=== PATIENT | male | born 1960 | race African-American/Black ===

== ENCOUNTER 2016-04-06 16:57 | Emergency (ER) | payer OTHER ==
[~2016-04-06] VITALS: Ht 188 cm; Wt 110.0 kg
[~2016-04-06 16:57] MED LIST: AMLO10TA2 PO; CLON0.2T PO; GEMF600T PO; LISI40TA PO
[2016-04-06 17:25] VITALS: BP 110/60; PULSE 77; RESP 14; TEMP 98.9; O2SAT 98
[2016-04-06 17:52] LABS: AUTOMATED NEUTROPHIL # 2.5 TH/MM3 (1.8-7.7); BASOPHIL # 0.1 TH/MM3 (0-0.2); BASOPHIL % 1.2 % (0.0-2.0); EOSINOPHIL % 0.8 % (0.0-4.0); HEMATOCRIT 36.5 % (39.0-51.0); HEMO FLAGS DIFF FINAL; LYMPH % 41.6 % (9.0-44.0); LYMPHOCYTE # 2.2 TH/MM3 (1.0-4.8); MEAN CELL VOLUME 88.9 FL (80.0-100.0); MEAN CORPUSCULAR HEMOGLOBIN 30.2 PG (27.0-34.0); MONO % 9.9 % (0.0-8.0); NEUT % 46.5 % (16.0-70.0); PLATELET COUNT 239 TH/MM3 (150-450); RED CELL DISTRIBUTION WIDTH 13.8 % (11.6-17.2); WHITE BLOOD COUNT 5.4 TH/MM3 (4.0-11.0)
[2016-04-06 18:12] LABS: ANION GAP 9 MEQ/L (5-15); AST (GOT) 21 U/L (15-37); BICARBONATE 23.8 MEQ/L (21.0-32.0); BLOOD UREA NITROGEN 12 MG/DL (7-18); CHLORIDE 110 MEQ/L (98-107); GLOMERULAR FILTRATION RATE 67 ML/MIN (>89); POTASSIUM 3.4 MEQ/L (3.5-5.1); SODIUM (NA) 143 MEQ/L (136-145)
[2016-04-06 18:16] LABS: ALKALINE PHOSPHATASE 46 U/L (45-117); ALT (GPT) 21 U/L (12-78); TOTAL BILIRUBIN ADULT 0.4 MG/DL (0.2-1.0)
--- NOTE | 2016-04-06 18:22 | PD ---
HPI Chief Complaint: Syncope/Near-Syncope Time Seen by Provider: 18:07 Travel History International Travel<30 days: No Contact w/Intl Traveler<30days: No Traveled to known affect area: No History of Present Illness HPI 55-year-old Afro-[place]istani male coming in via ambulance status post syncopal episode. Patient states he's been out of his blood pressure medications for the past couple of days, and then get them refilled. He felt he needed to double up on them, prior to getting his haircut. Patient took 2 of his 0.2 mg clonidine and 2 of his 40 mg lisinopril and 2 of his 10 mg amlodipine at approximately noon today. He then went to get his haircut was sitting in a chair and had a syncopal episode. EMS was called as the patient had loss of bladder control. No seizure activity was noted. Patient's blood pressure at that time was 88 systolic over palp. Patient was given 800 mL of normal saline in the ambulance prior to arrival in the emergency department. Patient is currently getting a second liter of normal saline when I evaluated him. Patient is currently alert and oriented 3, and complaining of no pain. He is allergic to iodine and contrast media [facility] Past Medical History Depression: Yes Heart Rhythm Problems: No Cardiac Catheterization: No Cardiovascular Problems: Yes (HTN) High Cholesterol: Yes Congestive Heart Failure: No Diabetes: No Diminished Hearing: No Hepatitis: Yes (c) Hypertension: Yes Respiratory: Yes (BRONCHITIS) Immunizations Current: Yes Myocardial Infarction: No Past Surgical History Coronary Artery Bypass Graft: No Social History Alcohol Use: Yes (EVERY OTHER DAY) Tobacco Use: No Sub[facility]: [facility] Allergies-Medications (Allergen,Severity, Reaction): Coded Allergies: Iodinated Contrast Media (Verified Allergy, Severe, RASH, 02/03/16) Reported Meds & Prescriptions Reported Meds & Active Scripts Active Lisinopril 40 Mg Tab 40 Mg PO DAILY Amlodipine (Amlodipine Besylate) 10 Mg Tab 10 Mg PO DAILY Reported Gemfibrozil 600 Mg Tab 600 Mg PO BIDAC Take 30 minutes prior to breakfast and dinner. Clonidine (Clonidine HCl) 0.2 Mg Tab 0.2 Mg PO TID Review of Systems Except as stated in HPI: all other systems reviewed are Neg General / Constitutional: No: Fever Eyes: No: Visual changes HENT: No: Headaches Cardiovascular: No: Chest Pain or Discomfort Respiratory: No: Shortness of Breath Gastrointestinal: No: Abdominal Pain Genitourinary: No: Dysuria Musculoskeletal: No: Pain Skin: No Rash Neurologic: No: Weakness Psychiatric: No: Depression Endocrine: No: Polydipsia Hematologic/Lymphatic: No: Easy Bruising Physical Exam Narrative GENERAL: Patient appears in no acute distress. SKIN: Warm and dry. Normal color. Normal turgor. No diaphoresis. HEAD: Atraumatic. Normocephalic. EYES: Pupils equal and round. No scleral icterus. No injection or drainage. ENT: No nasal bleeding or discharge. Mucous membranes pink and moist. Pharynx is normal. Airway is patent. NECK: Trachea midline. No JVD. Neck is supple nontender. CARDIOVASCULAR: Regular rate and rhythm. No murmurs gallops or rubs appreciated. RESPIRATORY: No accessory muscle use. Clear to auscultation. Breath sounds equal bilaterally. GASTROINTESTINAL: Abdomen soft, non-tender, nondistended. Hepatic and splenic margins not palpable. MUSCULOSKELETAL: Extremities without clubbing, cyanosis, or edema. No obvious deformities. NEUROLOGICAL: Awake and alert. No obvious cranial nerve deficits. Motor grossly within normal limits. Five out of 5 muscle strength in the arms and legs. Normal speech. PSYCHIATRIC: Appropriate mood and affect; insight and judgment normal. Data Data Last Documented VS Vital Signs Date Time Temp Pulse Resp B/P Pulse Ox O2 Delivery O2 Flow Rate FiO2 04/06/16 20:28 79 18 111/77 82 20 115/82 82 125/77 04/06/16 17:25 98.9 98 Orders Electrocardiogram (04/06/16 17:23) Complete Blood Count With Diff (04/06/16 17:23) Comprehensive Metabolic Panel (04/06/16 17:23) Iv Access Insert/Monitor (04/06/16 17:23) Potassium Chloride (Kcl) (04/06/16 18:30) Sodium Chlor 0.9% 1000 Ml Inj (Ns 1000 M (04/06/16 18:30) Orthostatic Vital Signs (04/06/16 18:24) Labs Laboratory Tests Test 04/06/16 17:37 White Blood Count 5.4 TH/MM3 Red Blood Count 4.10 MIL/MM3 Hemoglobin 12.4 GM/DL Hematocrit 36.5 % Mean Corpuscular Volume 88.9 FL Mean Corpuscular Hemoglobin 30.2 PG Mean Corpuscular Hemoglobin 34.0 % Concent Red Cell Distribution Width 13.8 % Platelet Count 239 TH/MM3 Mean Platelet Volume 8.9 FL Neutrophils (%) (Auto) 46.5 % Lymphocytes (%) (Auto) 41.6 % Monocytes (%) (Auto) 9.9 % Eosinophils (%) (Auto) 0.8 % Basophils (%) (Auto) 1.2 % Neutrophils # (Auto) 2.5 TH/MM3 Lymphocytes # (Auto) 2.2 TH/MM3 Monocytes # (Auto) 0.5 TH/MM3 Eosinophils # (Auto) 0.0 TH/MM3 Basophils # (Auto) 0.1 TH/MM3 CBC Comment DIFF FINAL Differential Comment Sodium Level 143 MEQ/L Potassium Level 3.4 MEQ/L Chloride Level 110 MEQ/L Carbon Dioxide Level 23.8 MEQ/L Anion Gap 9 MEQ/L Blood Urea Nitrogen 12 MG/DL Creatinine 1.35 MG/DL Estimat Glomerular Filtration 67 ML/MIN Rate Random Glucose 110 MG/DL Calcium Level 8.3 MG/DL Total Bilirubin 0.4 MG/DL Aspartate Amino Transf 21 U/L (AST/SGOT) Alanine Aminotransferase 21 U/L (ALT/SGPT) Alkaline Phosphatase 46 U/L Total Protein 7.1 GM/DL Albumin 3.6 GM/DL [facility] Medical Decision Making Medical Screen Exam Complete: Yes Emergency Medical Condition: Yes Differential Diagnosis Syncopal episode. Hypotension. Medication-induced syncopal episode. Narrative Course Patient appears well and in no acute distress at time of exam. EKG is performed showing sinus rhythm with first degree A-V block. No acute changes are noted. This is reviewed with Dr. Guthrie. Patient so far has received 1800 mL of normal saline bolus. Labs are pending including CBC, and CMP. CBC is unremarkable. CMP shows potassium 3.4, chloride of 110, creatinine 1.35 , GFR 67. Random glucose is 110, calcium is 8.3. Patient is given 20 mEq potassium by mouth. Patient is given an additional 1 L normal saline bolus. Orthostatics are performed after this second liter of normal saline and 20 mEq potassium. After observation and 2 L of fluid. Orthostatics are improved. Patient is able to ambulate without difficulty. Patient is felt to be stable to be discharged home. Diagnosis Primary Impression: Syncope due to orthostatic hypotension Referrals: Primary Care Physician Patient Instructions: General Instructions Departure Forms: Work Release Enter return to work date: Apr 08, 2016 Additional Instructions: Cold all blood pressure medications until tomorrow morning. Always take medication as prescribed despite missing a couple of doses. Follow-up with her primary care physician as needed. Return to emergency Department with any worsening symptoms or concerning as needed. Med/Other Pt SpecificInfo: No Change to Meds Disposition: 01 DISCHARGE HOME Condition: Stable Lenny Vences Apr 06, 2016 18:22
[2016-04-06] MEDS ORDERED: POTASSIUM CHLORIDE 20 MEQ CONTROLLED RELEASE TAB PO ONE (18:30)
[2016-04-06] MEDS ORDERED: SODIUM CHLOR 0.9% 1000 ML INJ 1,000 ML IV ONE (18:30)
[2016-04-06 20:28] VITALS: BP_SYST 111; BP_SYST 115; BP_SYST 125; BP_DIAS 77; BP_DIAS 82; RESP 18; RESP 20
--- NOTE | 2016-04-06 21:46 | EKG ---
Date Performed: 04/06/2016 Time Performed: 17:32:35 PTAGE: 55 years EKG: Sinus rhythm WITH FIRST DEGREE AV BLOCK PATTERN CONSISTENT WITH PULMONARY DISEASE LEFT ANTERIOR FASCICULAR BLOCK NONSPECIFIC T-WAVE ABNORMALITY ABNORMAL ECG INTERPRETATION BASED ON A DEFAULT AGE OF 40 YEARS PREVIOUS TRACING : 08/30/2015 08.39 No significant change DOCTOR: Tenzin Lloyd Interpretating Date/Time 04/06/2016 21:44:44
[2016-04-09] MEDS ORDERED: CLON0.2T PO ×2 (14:06→14:07)
[2016-04-13] MEDS ORDERED: METH125I2 IM (14:30)
[2016-04-13] MEDS ORDERED: CLOT1CRE8 TOPICAL (14:31)
[2016-04-23] MEDS ORDERED: METH125I2 IM (10:46)
[2016-04-24] MEDS ORDERED: GEMF600T PO (13:08)
[2016-06-08] MEDS ORDERED: GEMF600T PO (16:08)
[2016-06-11] MEDS ORDERED: CLOT1CRE8 TOPICAL (14:35)
[2016-06-11] MEDS ORDERED: METH125I2 IM (14:48)
[2016-06-12] MEDS ORDERED: TAMS5CAP PO (10:36)
[2016-06-13] MEDS ORDERED: CLOT1CRE8 TOPICAL (16:20)
[2016-06-21] MEDS ORDERED: AMLO10TA2 PO (11:59)
[2016-06-28] MEDS ORDERED: HYDR50TA94 PO (15:46)
[2016-07-22] MEDS ORDERED: LISI40TA PO (06:22)
[2016-07-26] MEDS ORDERED: CLON0.2T PO (16:44)
[2016-07-30] MEDS ORDERED: CLON0.2T PO (10:50)
[2016-09-13] MEDS ORDERED: METH125I2 IM (14:52)
[2016-09-13] MEDS ORDERED: [UNRECOGNIZED DRUG - CODE] IM (14:57)
[2016-09-18] MEDS ORDERED: TAMS5CAP PO (13:11)
== END 2016-04-06 21:23 | disposition home or self-care (01) ==
LOC: NEPC 16:57
DX: I95.1 Orthostatic hypotension (principal)
CPT/HCPCS: 80053; 85025; 93005; 99285; J7030

== ENCOUNTER → 2016-04-23 | Outpatient (CLI) | payer OTHER ==
[~2016-04-23] MED LIST changes: +CLOT1CRE8 TOPICAL; +HYDR50TA94 PO; +METH125I2 IM; +TAMS5CAP PO; +[UNRECOGNIZED DRUG - CODE] IM
[2016-04-23 13:04] LABS: CHLAMYDIA PCR NOT DETECTED (NOT DETECT); NEISSERIA PCR NOT DETECTED (NOT DETECT)
== END ==
LOC: CLAB 08:42
PROVIDERS: ATTEND Physician Assistant Medical
DX: R21 Rash and other nonspecific skin eruption (principal)
CPT/HCPCS: 87491; 87591

== ENCOUNTER → 2016-06-08 | Outpatient (CLI) | payer OTHER ==
[2016-06-08 08:21] LABS: HDL CHOLESTEROL 87.3 MG/DL (40.0-60.0)
== END ==
LOC: CLAB 07:30
PROVIDERS: ATTEND Family Medicine
DX: R55 Syncope and collapse (principal); M25.572 Pain in left ankle and joints of left foot; E78.5 Hyperlipidemia, unspecified
CPT/HCPCS: 36415; 80061

== ENCOUNTER → 2016-06-11 | Outpatient (CLI) | payer OTHER | LOC: CLAB 14:53 | PROVIDERS: ATTEND Family Medicine | DX: R39.11 Hesitancy of micturition (principal) | CPT/HCPCS: 36415; 84153 ==

== ENCOUNTER → 2016-07-16 | Outpatient (CLI) | payer OTHER ==
--- NOTE | 2016-07-16 14:37 | EKG ---
Date Performed: 07/16/2016 Time Performed: 12:43:39 PTAGE: 55 years EKG: SINUS TACHYCARDIA WITH FIRST DEGREE AV BLOCK PATTERN CONSISTENT WITH PULMONARY DISEASE LEFT ANTERIOR FASCICULAR BLOCK ABNORMAL ECG COMPARED TO PRIOR ELECTROCARDIOGRAM, Rate has increased. PREVIOUS TRACING : 04/06/2016 17.32 DOCTOR: Hay Bui Interpretating Date/Time 07/16/2016 14:35:40
--- NOTE | 2016-07-17 17:35 | TR ---
Date Performed: 07/16/2016 Time Performed: 12:21:35 DOCTOR: Ariadna Guo DRUG LIST: CLINICAL HISTORY: REASON FOR TEST: REASON FOR ENDING: OBSERVATION: CONCLUSION: SHAYLA PROTOCOL. NO CP OR SOB. TEST STOPPED AFTER EXCEEDING GOAL HR SECONDARY TO LEG FATIGUE.Maximum LY=733 Max HR Achieved=95.0% Maximum PB=080/90 Total Exercise Time=4:25 COMMENTS:
== END ==
LOC: HCAV 12:07
PROVIDERS: ATTEND Family Medicine
DX: I10 Essential (primary) hypertension (principal); F41.9 Anxiety disorder, unspecified; R07.9 Chest pain, unspecified
CPT/HCPCS: 93005; 93017

== ENCOUNTER 2017-03-06 07:58 | Emergency (ER) | payer OTHER ==
[~2017-03-06] VITALS: Ht 188 cm; Wt 115.0 kg
[~2017-03-06 07:58] MED LIST changes: -METH125I2 IM; -[UNRECOGNIZED DRUG - CODE] IM
[2017-03-06 08:00] VITALS: BP 175/107; PULSE 83; RESP 16; TEMP 98.7; O2SAT 97
[2017-03-06 08:24] VITALS: O2SAT 99
[2017-03-06 08:25] VITALS: BP_SYST 155; BP_SYST 162; BP_DIAS 100; BP_DIAS 105; PULSE 73
--- NOTE | 2017-03-06 08:25 | PD ---
HPI Chief Complaint: Cardiac Complaint Time Seen by Provider: 08:17 Travel History International Travel<30 days: No Contact w/Intl Traveler<30days: No Traveled to known affect area: No History of Present Illness HPI 56-year-old male patient with history of hypertension, anxiety, presents to the ER today because he is having several days' history of anxiety, not sleeping, palpitations, chest discomfort, nausea, vomiting. He states that he is very stressed out and states that he had gone use on Saturday that is distressing him. He denies any diarrhea, fevers, or other symptoms. He denies any homicidal or suicidal ideation. Modifying Factors: None Associated Signs & Symptoms: Anxiety, insomnia, palpitations, chest discomfort, nausea, vomiting Risk Factors: Previous history of panic attacks, appears to be situational PFSH Past Medical History Depression: Yes Heart Rhythm Problems: No Cardiac Catheterization: No Cardiovascular Problems: Yes (HTN) High Cholesterol: Yes Congestive Heart Failure: No Diabetes: No Diminished Hearing: No Hepatitis: Yes (c) Hypertension: Yes Respiratory: Yes (BRONCHITIS) Immunizations Current: Yes Myocardial Infarction: No Past Surgical History Coronary Artery Bypass Graft: No Social History Alcohol Use: Yes (EVERY OTHER DAY) Tobacco Use: No [facility]: [facility] Allergies-Medications (Allergen,Severity, Reaction): Coded Allergies: Iodinated Contrast- Oral and IV Dye (Unverified Allergy, Severe, RASH, 03/06/17) Reported Meds & Prescriptions Reported Meds & Active Scripts Active Lisinopril 40 Mg Tab 40 Mg PO DAILY Gemfibrozil 600 Mg Tab 600 Mg PO BIDAC Take 30 minutes prior to breakfast and dinner. Amlodipine (Amlodipine Besylate) 10 Mg Tab 10 Mg PO DAILY Flomax (Tamsulosin HCl) 0.4 Mg Cap 0.4 Mg PO HS Clonidine (Clonidine HCl) 0.2 Mg Tab 0.2 Mg PO TID Hydroxyzine HCl 50 Mg Tab 50 Mg PO BID Review of Systems Except as stated in HPI: all other systems reviewed are Neg Physical Exam Narrative GENERAL: Well-developed middle age -[place] male patient currently in mild distress, appears anxious. Awake and oriented 3. SKIN: Focused skin assessment warm/dry. HEAD: Atraumatic. Normocephalic. EYES: Pupils equal and round. No scleral icterus. No injection or drainage. ENT: No nasal bleeding or discharge. Mucous membranes pink and moist. NECK: Trachea midline. No JVD. CARDIOVASCULAR: Regular rate and rhythm. No murmur appreciated. RESPIRATORY: No accessory muscle use. Clear to auscultation. Breath sounds equal bilaterally. GASTROINTESTINAL: Abdomen soft, non-tender, nondistended. Hepatic and splenic margins not palpable. MUSCULOSKELETAL: No obvious deformities. No clubbing. No cyanosis. No edema. NEUROLOGICAL: Awake and alert. No obvious cranial nerve deficits. Motor grossly within normal limits. Normal speech. PSYCHIATRIC: Anxious mood and affect; insight and judgment normal. Data Data Last Documented VS Vital Signs Date Time Temp Pulse Resp B/P (MAP) Pulse Ox O2 Delivery O2 Flow Rate FiO2 03/06/17 08:25 73 162/105 (124) 155/100 (118) 03/06/17 08:24 99 Room Air 03/06/17 08:00 98.7 16 Orders Orders Electrocardiogram (03/06/17 08:17) Ckmb (Isoenzyme) Profile (03/06/17 08:17) Complete Blood Count With Diff (03/06/17 08:17) Comprehensive Metabolic Panel (03/06/17 08:17) Magnesium (Mg) (03/06/17 08:17) Prothrombin Time / Inr (Pt) (03/06/17 08:17) Act Partial Throm Time (Ptt) (03/06/17 08:17) Troponin I (03/06/17 08:17) Lipase (03/06/17 08:17) Chest, Single Ap (03/06/17 08:17) Ecg Monitoring (03/06/17 08:17) Bilateral Bp Monitoring (03/06/17 08:17) Iv Access Insert/Monitor (03/06/17 08:17) Oximetry (03/06/17 08:17) Oxygen Administration (03/06/17 08:17) Sodium Chloride 0.9% Flush (Ns Flush) (03/06/17 08:30) Ondansetron Inj (Zofran Inj) (03/06/17 08:30) Lorazepam Inj (Ativan Inj) (03/06/17 08:30) CKMB (03/06/17 08:30) CKMB% (03/06/17 08:30) Ed Discharge Order (03/06/17 10:46) Labs Laboratory Tests Test 03/06/17 08:30 03/06/17 09:20 White Blood Count 4.9 TH/MM3 Red Blood Count 4.73 MIL/MM3 Hemoglobin 14.3 GM/DL Hematocrit 41.5 % Mean Corpuscular Volume 87.8 FL Mean Corpuscular Hemoglobin 30.3 PG Mean Corpuscular Hemoglobin Concent 34.5 % Red Cell Distribution Width 13.8 % Platelet Count 309 TH/MM3 Mean Platelet Volume 9.8 FL Neutrophils (%) (Auto) 49.4 % Lymphocytes (%) (Auto) 39.8 % Monocytes (%) (Auto) 9.0 % Eosinophils (%) (Auto) 0.7 % Basophils (%) (Auto) 1.1 % Neutrophils # (Auto) 2.4 TH/MM3 Lymphocytes # (Auto) 2.0 TH/MM3 Monocytes # (Auto) 0.4 TH/MM3 Eosinophils # (Auto) 0.0 TH/MM3 Basophils # (Auto) 0.1 TH/MM3 CBC Comment DIFF FINAL Differential Comment Blood Urea Nitrogen 11 MG/DL Creatinine 0.88 MG/DL Random Glucose 97 MG/DL Total Protein 8.9 GM/DL Albumin 4.3 GM/DL Calcium Level 9.3 MG/DL Magnesium Level 1.7 MG/DL Alkaline Phosphatase 59 U/L Aspartate Amino Transf (AST/SGOT) 46 U/L Alanine Aminotransferase (ALT/SGPT) 33 U/L Total Bilirubin 0.3 MG/DL Sodium Level 136 MEQ/L Potassium Level 4.5 MEQ/L Chloride Level 104 MEQ/L Carbon Dioxide Level 21.5 MEQ/L Anion Gap 11 MEQ/L Estimat Glomerular Filtration Rate 109 ML/MIN Total Creatine Kinase 925 U/L Creatine Kinase MB 6.1 NG/ML Creatine Kinase MB % 0.7 % Troponin I LESS THAN 0.02 NG/ML Lipase 84 U/L Prothrombin Time 10.9 SEC Prothromb Time International Ratio 1.1 RATIO Activated Partial Thromboplast Time 26.9 SEC MDM Medical Decision Making Medical Screen Exam Complete: Yes Emergency Medical Condition: Yes Medical Record Reviewed: Yes Interpretation(s) EKG shows NSR as a first-degree AV block, no ST elevation or depression, and no arrhythmias. No significant T-wave inversions. Laboratory Tests Test 03/06/17 08:30 03/06/17 09:20 Monocytes (%) (Auto) 9.0 % (0.0-8.0) Total Protein 8.9 GM/DL (6.4-8.2) Aspartate Amino Transf (AST/SGOT) 46 U/L (15-37) Total Creatine Kinase 925 U/L (39-308) Creatine Kinase MB 6.1 NG/ML (0.5-3.6) Troponin I LESS THAN 0.02 NG/ML Differential Diagnosis Anxiety attack versus dysrhythmias versus metabolic issues versus dehydration versus ACS Narrative Course Lab work, cardiac enzymes, and EKG did not show any signs of abnormal rhythm or significant abnormalities. Vital signs are stable in the ER. Patient's symptoms have subsided and the ER. It is noted that patient has stress test which was unremarkable in June as well. He apparently has had similar spells recently and has been evaluated in the past for this, is following up with primary care doctor. Patient was given anxiolytic in the ER and on reevaluation at 10:40 AM, is having improved symptoms. My plan would be to release him at this point with follow-up to primary care physician. Return for worsening in symptoms as needed. The plan has been discussed with the patient and he states understanding. Diagnosis Primary Impression: Palpitations Additional Impression: Anxiety Disposition: 01 DISCHARGE HOME Condition: Stable Ning Duvall MD Mar 06, 2017 08:25
[2017-03-06] MEDS ORDERED: ONDANSETRON HCL 4 MG/2 ML VIAL IV PUSH ONE (08:30)
[2017-03-06] MEDS ORDERED: SODIUM CHLORIDE 0.9% FLUSH 10 ML FLUSH IVF PRN (08:30)
[2017-03-06] MEDS ORDERED: LORazepam 2 MG/ML VIAL IV PUSH ONE (08:30)
[2017-03-06 08:48] LABS: AUTOMATED NEUTROPHIL # 2.4 TH/MM3 (1.8-7.7); BASOPHIL # 0.1 TH/MM3 (0-0.2); BASOPHIL % 1.1 % (0.0-2.0); EOSINOPHIL % 0.7 % (0.0-4.0); HEMATOCRIT 41.5 % (39.0-51.0); HEMO FLAGS DIFF FINAL; LYMPH % 39.8 % (9.0-44.0); MEAN CELL VOLUME 87.8 FL (80.0-100.0); MEAN CORPUSCULAR HEMOGLOBIN 30.3 PG (27.0-34.0); MEAN CORPUSCULAR HGB CONC 34.5 % (32.0-36.0); NEUT % 49.4 % (16.0-70.0); PLATELET COUNT 309 TH/MM3 (150-450); RED BLOOD COUNT 4.73 MIL/MM3 (4.50-5.90); RED CELL DISTRIBUTION WIDTH 13.8 % (11.6-17.2); WHITE BLOOD COUNT 4.9 TH/MM3 (4.0-11.0)
[2017-03-06 09:19] LABS: ANION GAP 11 MEQ/L (5-15); AST (GOT) 46 U/L (15-37); BICARBONATE 21.5 MEQ/L (21.0-32.0); BLOOD UREA NITROGEN 11 MG/DL (7-18); CHLORIDE 104 MEQ/L (98-107); GLOMERULAR FILTRATION RATE 109 ML/MIN (>89); MAGNESIUM 1.7 MG/DL (1.5-2.5); SODIUM (NA) 136 MEQ/L (136-145)
[2017-03-06 09:24] LABS: ALKALINE PHOSPHATASE 59 U/L (45-117); ALT (GPT) 33 U/L (12-78); CREATINE KINASE 925 U/L (39-308); TOTAL BILIRUBIN ADULT 0.3 MG/DL (0.2-1.0)
[2017-03-06 09:29] LABS: POTASSIUM 4.5 MEQ/L (3.5-5.1)
[2017-03-06 09:51] LABS: APTT (PATIENT) 26.9 SEC (24.3-30.1); INTERNATIONAL NORMALIZED RATIO 1.1 RATIO; PROTHROMBIN TIME - PATIENT 10.9 SEC (9.8-11.6)
[2017-03-06 09:54] LABS: CKMB 6.1 NG/ML (0.5-3.6)
--- NOTE | 2017-03-06 10:35 | RADRPT ---
EXAM DATE/TIME: 03/06/2017 08:50 [facility] COMPARISON: CHEST SINGLE AP, August 30, 2015, 8:35. INDICATIONS : Shortness of breath. MEDICAL HISTORY : None. SURGICAL HISTORY : None. ENCOUNTER: Initial ACUITY: 1 day PAIN SCORE: 0/10 LOCATION: Bilateral chest FINDINGS: The lungs are hypoaerated. There is no evidence of consolidating infiltrate, mass densities or effusi ons.. The cardiomediastinal contours are unremarkable. Osseous structures are intact. CONCLUSION: No evidence of acute cardiopulmonary process. Erik Blanc MD on March 06, 2017 at 10:20 Board Certified Radiologist. This report was verified electronically.
--- NOTE | 2017-03-07 10:31 | EKG ---
Date Performed: 03/06/2017 Time Performed: 08:36:09 PTAGE: 56 years EKG: Sinus rhythm WITH SINUS ARRHYTHMIA WITH FIRST DEGREE AV BLOCK LEFT ANTERIOR FASCICULAR BLOCK ABNORMAL ECG PREVIOUS TRACING : 07/16/2016 12.43 Compared to the previous tracing rate slower DOCTOR: Otilio Perez Interpretating Date/Time 03/07/2017 10:31:11
== END 2017-03-06 11:20 | disposition home or self-care (01) ==
LOC: NEPE 07:58
DX: R00.2 Palpitations (principal); F41.9 Anxiety disorder, unspecified; I10 Essential (primary) hypertension; Z79.899 Other long term (current) drug therapy
CPT/HCPCS: 71010; 80053; 82550; 82552; 83690; 83735; 84484; 85025; 85610; 85730; 93005; 96374; 96375; 99285; J2060; J2405

== ENCOUNTER 2017-03-12 19:26 | Emergency (ER) | payer OTHER ==
[~2017-03-12 19:26] MED LIST changes: -CLOT1CRE8 TOPICAL
[2017-03-12 19:28] VITALS: BP 147/90; PULSE 117; RESP 16; TEMP 98; O2SAT 98
[2017-03-12] MEDS ORDERED: IBUPROFEN 800 MG TAB PO ONE (20:30)
--- NOTE | 2017-03-12 20:31 | PD ---
HPI Chief Complaint: Musculoskeletal Complaint Time Seen by Provider: 20:20 Travel History International Travel<30 days: No Contact w/Intl Traveler<30days: No Traveled to known affect area: No History of Present Illness HPI 56-year-old male with PMH of chronic left foot pain presents to the ED for evaluation of 11/08 left foot and ankle pain. Onset after the patient rolled his ankle to the outside a few days ago. Pain is constant, no alleviating or exacerbating factors reported. Patient denies numbness, tingling, weakness, limitations or range of motion of the foot. He treated at home with ice, elevation and compression with no improvement of symptoms. He states that he saw a taxation inspector a few years ago for his chronic foot issues and was told that he needed effusion, however he has not undergone this procedure. He states that he works on his feet all day and is unable to sit down the leg as requested this multiple times. PFSH Past Medical History Depression: Yes Heart Rhythm Problems: No Cardiac Catheterization: No Cardiovascular Problems: Yes (HTN) High Cholesterol: Yes Congestive Heart Failure: No Diabetes: No Diminished Hearing: No Hepatitis: Yes (c) Hypertension: Yes Respiratory: Yes (BRONCHITIS) Immunizations Current: Yes Myocardial Infarction: No Past Surgical History Coronary Artery Bypass Graft: No Social History Alcohol Use: Yes (EVERY OTHER DAY) Tobacco Use: No Substance Use: Yes ([facility]) Allergies-Medications (Allergen,Severity, Reaction): Coded Allergies: Iodinated Contrast- Oral and IV Dye (Unverified Allergy, Severe, RASH, 03/06/17) Reported Meds & Prescriptions Reported Meds & Active Scripts Active Ibuprofen 800 Mg Tab 800 Mg PO Q8H PRN Lisinopril 40 Mg Tab 40 Mg PO DAILY Gemfibrozil 600 Mg Tab 600 Mg PO BIDAC Take 30 minutes prior to breakfast and dinner. Amlodipine (Amlodipine Besylate) 10 Mg Tab 10 Mg PO DAILY Flomax (Tamsulosin HCl) 0.4 Mg Cap 0.4 Mg PO HS Clonidine (Clonidine HCl) 0.2 Mg Tab 0.2 Mg PO TID Hydroxyzine HCl 50 Mg Tab 50 Mg PO BID Review of Systems Except as stated in HPI: all other systems reviewed are Neg Physical Exam Narrative GENERAL: Well-nourished, well-developed black male in no acute distress. SKIN: Focused skin assessment warm/dry. HEAD: Normocephalic. EYES: No scleral icterus. No injection or drainage. NECK: Supple, trachea midline. No JVD or lymphadenopathy. CARDIOVASCULAR: Regular rate and rhythm without murmurs, gallops, or rubs. RESPIRATORY: Breath sounds equal bilaterally. No accessory muscle use. GASTROINTESTINAL: Abdomen soft, non-tender, nondistended. MUSCULOSKELETAL: No cyanosis, or edema. FOCUSED LEFT LOWER EXTREMITY EXAM: 2+ DP pulse. No edema, ecchymosis noted. Squeeze test negative. Tender to palpation of the medial malleolus and bones of the medial foot. No navicular tenderness. No base of the fifth tenderness. Patient is able to wiggle the toes. Sensation intact to light touch distally. Cap refill less than 2 seconds. BACK: Nontender without obvious deformity. No CVA tenderness. Data Data Last Documented VS Vital Signs Date Time Temp Pulse Resp B/P (MAP) Pulse Ox O2 Delivery O2 Flow Rate FiO2 03/12/17 21:20 03/12/17 19:28 98.0 117 16 98 Room Air Orders Orders Ankle, Complete ([id number]) (03/12/17 20:24) Foot, Complete ([id number]) (03/12/17 20:24) Ice/Cold Pack (03/12/17 20:24) Ibuprofen (Motrin) (03/12/17 20:30) Ed Discharge Order (03/12/17 21:09) [facility] Medical Decision Making Medical Screen Exam Complete: Yes Emergency Medical Condition: Yes Differential Diagnosis Chronic foot pain versus ankle sprain versus ankle sprain versus neuropathy versus other Narrative Course 56-year-old male with PMH of chronic left foot pain presents to the ED for evaluation of 11/08 left foot and ankle pain. Onset after the patient rolled his ankle to the outside a few days ago. Pain is constant, no alleviating or exacerbating factors reported. Patient denies numbness, tingling, weakness, limitations or range of motion of the foot. He treated at home with ice, elevation and compression with no improvement of symptoms. He states that he saw a taxation inspector a few years ago for his chronic foot issues and was told that he needed a fusion, however he has not undergone this procedure. He states that he works on his feet all day and is unable to sit down the leg as requested this multiple times. Vitals reviewed. ON physical exam the patient has TTP of the medial malleolus in both the mid foot. 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 This is chronic foot pain and ankle pain. Patient's prescribed a short course of anti-inflammatory medications. Harley wrap was applied. He was provided a note for work. He is instructed to follow-up with the taxation inspector. He is stable and discharged home. Diagnosis Primary Impression: Chronic pain in left foot Additional Impression: Ankle pain, left Qualified Codes: M25.572 - Pain in left ankle and joints of left foot Referrals: Mitchell Mcqueen DPM [employer] Patient Instructions: Ankle Sprain (ED), General Instructions Departure Forms: Tests/Procedures, Work Release Enter return to work date: Mar 14, 2017 Special Instructions: No long periods of standing until cleared by podiatry. Additional Instructions: Rest, ice, elevate the extremity. Apply ice no longer than 10-15 minutes per hour a few times a day. 800 mg ibuprofen up to 3 times a day as needed for pain. Return to normal, gentle activity as tolerated. No running, jumping activities for the next few weeks. Follow up with the taxation inspector as discussed. Return to the ED for any urgent or emergent medical condition. Med/Other Pt SpecificInfo: Prescription(s) given Scripts Ibuprofen (Ibuprofen) 800 Mg Tab 800 MG PO Q8H Y for Pain/Inflammation, #15 TAB 0 Refills Prov: Ted Lisa MD 03/12/17 Disposition: 01 DISCHARGE HOME Condition: Stable Olga Olson Mar 12, 2017 20:31
[2017-03-12] MEDS ORDERED: IBUP1TAB7 PO (21:09)
--- NOTE | 2017-03-12 21:22 | RADRPT ---
EXAM DATE/TIME: 03/12/2017 20:34 [facility] COMPARISON: No previous studies available for comparison. INDICATIONS : Left foot pain. Patient rolled ankle a few days ago. Chronic foot pain. MEDICAL HISTORY : None. SURGICAL HISTORY : None. ENCOUNTER: Initial ACUITY: 1 week PAIN SCORE: 10/10 LOCATION: Left foot. FINDINGS: Pes planus deformity present. No acute fracture or dislocation. No bony destructive changes. CONCLUSION: 1. Pes planus deformity. No acute fracture or dislocation. Sascha Ivey MD on March 12, 2017 at 21:19 Board Certified Radiologist. This report was verified electronically.
--- NOTE | 2017-03-12 21:24 | RADRPT ---
EXAM DATE/TIME: 03/12/2017 20:36 [facility] COMPARISON: No previous studies available for comparison. INDICATIONS : Left ankle pain. Patient rolled ankle a few days ago. Chronic foot pain. MEDICAL HISTORY : None. SURGICAL HISTORY : None. ENCOUNTER: Initial ACUITY: 1 week PAIN SCORE: 5/10 LOCATION: Left ankle. FINDINGS: Three view exam was performed of the left ankle. The bony structures are in normal alignment. No ev idence of fracture, dislocation, or soft tissue swelling. The ankle mortise is intact. No radiopaqu e foreign bodies are seen. Bony mineralization is normal. CONCLUSION: 1. No acute bony abnormality. Sascha Ivey MD on March 12, 2017 at 21:22 Board Certified Radiologist. This report was verified electronically.
== END 2017-03-12 21:28 | disposition home or self-care (01) ==
LOC: NEPK 19:26
DX: M79.672 Pain in left foot (principal); G89.29 Other chronic pain; M25.572 Pain in left ankle and joints of left foot; M21.42 Flat foot [pes planus] (acquired), left foot; F32.9 Major depressive disorder, single episode, unspecified; I10 Essential (primary) hypertension; Z86.19 Personal history of other infectious and parasitic diseases; Z79.899 Other long term (current) drug therapy
CPT/HCPCS: 73610; 73630; 99283

== ENCOUNTER 2017-07-09 09:06 | Emergency (ER) | payer SELFPAY ==
[2017-07-09] VITALS (7 sets, daily range): BP systolic 170–209; BP diastolic 100–116; PULSE 64–74; RESP 18; TEMP 98.2–98.3; O2SAT 97–98
[~2017-07-09 09:06] MED LIST changes: +IBUP1TAB7 PO
--- NOTE | 2017-07-09 09:18 | PD ---
HPI Chief Complaint: Cardiac Complaint Time Seen by Provider: 09:16 Travel History International Travel<30 days: No Contact w/Intl Traveler<30days: No Traveled to known affect area: No History of Present Illness HPI Patient does not have any primary care physician has been unable to fill his medications for 5 days, of which include clonidine, amlodipine, lisinopril, and Flomax. Patient comes in complaining of 2 separate major illnesses. First the chest pain that of which he last had it about a day and a half ago. It was substernal nonradiating about 4 5 out of 10 in a scale and sharp. However the main reason the patient is here today is because he has headache, which is generalized, rated 9 out of 10, and it is associated with elevated blood pressure. Used to have Dr. Maria and is currently attempting to establish with [facility] Allergy to oral and IV dye Past medical history significant for hypertension hypercholesterolemia bronchitis depression hepatitis PFSH Past Medical History Depression: Yes Heart Rhythm Problems: No Cardiac Catheterization: No Cardiovascular Problems: Yes (HTN) High Cholesterol: Yes Congestive Heart Failure: No Diabetes: No Diminished Hearing: No Hepatitis: Yes (c) Heparin Induced Thrombocytopen: No Hypertension: Yes Respiratory: Yes (BRONCHITIS) Immunizations Current: Yes Myocardial Infarction: No Past Surgical History Coronary Artery Bypass Graft: No Social History Alcohol Use: Yes (EVERY OTHER DAY) Tobacco Use: No Substance Use: Yes (MARIJANNA OCC) Allergies-Medications (Allergen,Severity, Reaction): Coded Allergies: Iodinated Contrast- Oral and IV Dye (Unverified Allergy, Severe, RASH, 03/06/17) Reported Meds & Prescriptions Reported Meds & Active Scripts Active Hydrochlorothiazide 50 Mg Tab 50 Mg PO DAILY Lisinopril 40 Mg Tab 40 Mg PO DAILY Amlodipine (Amlodipine Besylate) 10 Mg Tab 10 Mg PO DAILY Ibuprofen 800 Mg Tab 800 Mg PO Q8H PRN Lisinopril 40 Mg Tab 40 Mg PO DAILY Gemfibrozil 600 Mg Tab 600 Mg PO BIDAC Take 30 minutes prior to breakfast and dinner. Amlodipine (Amlodipine Besylate) 10 Mg Tab 10 Mg PO DAILY Flomax (Tamsulosin HCl) 0.4 Mg Cap 0.4 Mg PO HS Clonidine (Clonidine HCl) 0.2 Mg Tab 0.2 Mg PO TID Hydroxyzine HCl 50 Mg Tab 50 Mg PO BID Review of Systems General / Constitutional: No: Fever Eyes: No: Visual changes HENT: Positive: Headaches Cardiovascular: Positive: Other (hypertensive), No: Chest Pain or Discomfort Respiratory: No: Shortness of Breath Gastrointestinal: No: Abdominal Pain Genitourinary: No: Dysuria Musculoskeletal: No: Pain Skin: No Rash Neurologic: No: Weakness Psychiatric: No: Depression Endocrine: No: Polydipsia Hematologic/Lymphatic: No: Easy Bruising Physical Exam Narrative GENERAL: SKIN: Warm and dry. HEAD: Atraumatic. Normocephalic. No temporal tenderness to palpation EYES: Pupils equal and round. No scleral icterus. No injection or drainage. ENT: No nasal bleeding or discharge. Mucous membranes pink and moist. NECK: Trachea midline. No JVD. CARDIOVASCULAR: Regular rate and rhythm. RESPIRATORY: No accessory muscle use. Clear to auscultation. Breath sounds equal bilaterally. GASTROINTESTINAL: Abdomen soft, non-tender, nondistended MUSCULOSKELETAL: Extremities without clubbing, cyanosis, or edema. No obvious deformities. NEUROLOGICAL: Awake and alert. No obvious cranial nerve deficits. Motor grossly within normal limits. Five out of 5 muscle strength in the arms and legs. Normal speech. PSYCHIATRIC: Appropriate mood and affect; insight and judgment normal. Data Data Last Documented VS Vital Signs Date Time Temp Pulse Resp B/P (MAP) Pulse Ox O2 Delivery O2 Flow Rate FiO2 07/09/17 10:37 170/100 (123) 07/09/17 09:37 98.2 64 18 98 Orders Orders Electrocardiogram (07/09/17 09:20) B-Type Natriuretic Peptide (07/09/17 09:20) Ckmb (Isoenzyme) Profile (07/09/17 09:20) Complete Blood Count With Diff (07/09/17:20) Comprehensive Metabolic Panel (07/09/17:20) D-Dimer (07/09/17:20) Prothrombin Time / Inr (Pt) (07/09/17:20) Act Partial Throm Time (Ptt) (07/09/17:20) Troponin I (07/09/17:20) Lipase (07/09/17 09:20) Chest, Single Ap (07/09/17 09:20) Ecg Monitoring (07/09/17:20) Bilateral Bp Monitoring (07/09/17 09:20) Iv Access Insert/Monitor (07/09/17 09:20) Oximetry (07/09/17 09:20) Oxygen Administration (07/09/17:20) Sodium Chloride 0.9% Flush (Ns Flush) (07/09/17:30) Hydralazine Inj (Apresoline Inj) (07/09/17:30) Ct Brain W/O Iv Contrast(Rout) (07/09/17:30) CKMB (07/09/17:30) CKMB% (07/09/17:30) Labs Laboratory Tests Test 07/09/17:30 White Blood Count 5.2 TH/MM3 Red Blood Count 5.00 MIL/MM3 Hemoglobin 15.0 GM/DL Hematocrit 44.4 % Mean Corpuscular Volume 88.8 FL Mean Corpuscular Hemoglobin 30.0 PG Mean Corpuscular Hemoglobin Concent 33.7 % Red Cell Distribution Width 14.7 % Platelet Count 242 TH/MM3 Mean Platelet Volume 9.7 FL Neutrophils (%) (Auto) 49.6 % Lymphocytes (%) (Auto) 37.7 % Monocytes (%) (Auto) 10.7 % Eosinophils (%) (Auto) 0.9 % Basophils (%) (Auto) 1.1 % Neutrophils # (Auto) 2.6 TH/MM3 Lymphocytes # (Auto) 1.9 TH/MM3 Monocytes # (Auto) 0.6 TH/MM3 Eosinophils # (Auto) 0.0 TH/MM3 Basophils # (Auto) 0.1 TH/MM3 CBC Comment DIFF FINAL Differential Comment Prothrombin Time 10.3 SEC Prothromb Time International Ratio 1.0 RATIO Activated Partial Thromboplast Time 25.4 SEC D-Dimer Quantitative (PE/DVT) 0.24 MG/L FEU Blood Urea Nitrogen 15 MG/DL Creatinine 1.01 MG/DL Random Glucose 93 MG/DL Total Protein 8.5 GM/DL Albumin 4.2 GM/DL Calcium Level 9.2 MG/DL Alkaline Phosphatase 51 U/L Aspartate Amino Transf (AST/SGOT) 41 U/L Alanine Aminotransferase (ALT/SGPT) 51 U/L Total Bilirubin 0.4 MG/DL Sodium Level 140 MEQ/L Potassium Level 3.8 MEQ/L Chloride Level 106 MEQ/L Carbon Dioxide Level 24.0 MEQ/L Anion Gap 10 MEQ/L Estimat Glomerular Filtration Rate 93 ML/MIN Total Creatine Kinase 518 U/L Creatine Kinase MB 3.6 NG/ML Creatine Kinase MB % 0.7 % Troponin I LESS THAN 0.02 NG/ML B-Type Natriuretic Peptide 84 PG/ML Lipase 121 U/L MDM Medical Decision Making Medical Screen Exam Complete: Yes Emergency Medical Condition: Yes Medical Record Reviewed: Yes Interpretation(s) EKG shows normal sinus rhythm, 64 bpm, first-degree AV block, LVH pattern, nonspecific ST-T wave changes, no STEMI pattern noted Differential Diagnosis Intracranial hemorrhage versus GA versus hypertension uncontrolled versus hypertensive emergency versus renal failure Narrative Course Due to the patient's "chest pain" symptoms troponin will be ordered as well as an EKG, however this patient has not felt this chest pain in 1-1/2 days. So today's first set of cardiac enzymes will count as a complete rule out. CBC shows no leukocytosis, no anemia, normal platelet count, no left shift. Coagulation profile is within normal limits, and the d-dimer is negative First set of cardiac enzymes is negative, electrolytes are all within normal limits, normal kidney liver and pancreas function. Diagnosis Primary Impression: Hypertension uncontrolled Referrals: [facility] Patient Instructions: General Instructions, Hypertension (DC) Scripts Hydrochlorothiazide (Hydrochlorothiazide) 50 Mg Tab 50 MG PO DAILY, #60 TAB 0 Refills Prov: Ted Lisa MD 07/09/17 Lisinopril (Lisinopril) 40 Mg Tab 40 MG PO DAILY for Blood Pressure Management, #30 TAB 1 Refill Prov: Ted Lisa MD 07/09/17 Amlodipine (Amlodipine) 10 Mg Tab 10 MG PO DAILY for Blood Pressure Management, #30 TAB 1 Refill Prov: Ted Lisa MD 07/09/17 Disposition: 01 DISCHARGE HOME Condition: Stable Ted Lisa MD Jul 09, 2017 09:18
[2017-07-09] MEDS ORDERED: SODIUM CHLORIDE 0.9% FLUSH 10 ML FLUSH IVF PRN (09:30)
[2017-07-09] MEDS ORDERED: hydrALAZINE HCL 20 MG/ML VIAL IV PUSH ONE (09:30)
[2017-07-09] MEDS ORDERED: LISI40TA PO (09:33)
[2017-07-09] MEDS ORDERED: AMLO10TA2 PO (09:33)
[2017-07-09] MEDS ORDERED: HYDR50TA3 PO (09:33)
--- NOTE | 2017-07-09 09:54 | RADRPT ---
EXAM DATE/TIME: 07/09/2017 09:38 [facility] COMPARISON: CHEST SINGLE AP, March 06, 2017, 8:50. INDICATIONS : Hypertension. Chest pain. MEDICAL HISTORY : Hypertension. SURGICAL HISTORY : None. ENCOUNTER: Subsequent ACUITY: 3 days PAIN SCORE: 5/10 LOCATION: Left middle chest FINDINGS: Portable AP view of the chest demonstrates a normal-sized cardiac silhouette. No effusion, consolidat ion, or pneumothorax is visualized. The bones and soft tissues demonstrate no acute abnormality. CONCLUSION: No acute cardiopulmonary abnormality is identified. Matt Meeks MD on July 09, 2017 at 9:50 Board Certified Radiologist. This report was verified electronically.
--- NOTE | 2017-07-09 09:58 | RADRPT ---
EXAM DATE/TIME: 07/09/2017 09:49 [facility] COMPARISON: CT BRAIN W/O CONTRAST, April 08, 2010, 11:01. INDICATIONS : Cephalgia. RADIATION DOSE: 40.66 CTDIvol (mGy) MEDICAL HISTORY : Hypertension. SURGICAL HISTORY : None. ENCOUNTER: Initial ACUITY: 3 days PAIN SCALE: 4/10 LOCATION: cranial TECHNIQUE: Multiple contiguous axial images were obtained of the head. Using automated exposure control and adj ustment of the mA and/or kV according to patient size, radiation dose was kept as low as reasonably a chievable to obtain optimal diagnostic quality images. DICOM format image data is available electro nically for review and comparison. FINDINGS: CEREBRUM: The ventricles are normal. No evidence of midline shift, mass lesion, hemorrhage or acute infarction . No extra-axial fluid collections are seen. POSTERIOR FOSSA: The cerebellum and brainstem are intact. The 4th ventricle is midline. The cerebellopontine angle i s unremarkable. EXTRACRANIAL: Visualized sinuses are clear. SKULL: The calvaria is intact. No evidence of skull fracture. CONCLUSION: No acute intracranial abnormality is identified. Matt Meeks MD on July 09, 2017 at 9:53 Board Certified Radiologist. This report was verified electronically.
[2017-07-09 10:35] LABS: AUTOMATED NEUTROPHIL # 2.6 TH/MM3 (1.8-7.7); BASOPHIL # 0.1 TH/MM3 (0-0.2); BASOPHIL % 1.1 % (0.0-2.0); EOSINOPHIL % 0.9 % (0.0-4.0); HEMATOCRIT 44.4 % (39.0-51.0); LYMPH % 37.7 % (9.0-44.0); LYMPHOCYTE # 1.9 TH/MM3 (1.0-4.8); MEAN CELL VOLUME 88.8 FL (80.0-100.0); MEAN CORPUSCULAR HGB CONC 33.7 % (32.0-36.0); MEAN PLATELET VOLUME 9.7 FL (7.0-11.0); MONO % 10.7 % (0.0-8.0); MONOCYTE # 0.6 TH/MM3 (0-0.9); NEUT % 49.6 % (16.0-70.0); PLATELET COUNT 242 TH/MM3 (150-450); RED CELL DISTRIBUTION WIDTH 14.7 % (11.6-17.2); WHITE BLOOD COUNT 5.2 TH/MM3 (4.0-11.0)
[2017-07-09 10:46] LABS: ALBUMIN 4.2 GM/DL (3.4-5.0); AST (GOT) 41 U/L (15-37); BLOOD UREA NITROGEN 15 MG/DL (7-18); CALCIUM 9.2 MG/DL (8.5-10.1); CHLORIDE 106 MEQ/L (98-107); CREATININE 1.01 MG/DL (0.60-1.30); GLOMERULAR FILTRATION RATE 93 ML/MIN (>89); GLUCOSE,RANDOM 93 MG/DL (74-106); SODIUM (NA) 140 MEQ/L (136-145)
[2017-07-09 10:50] LABS: ALKALINE PHOSPHATASE 51 U/L (45-117); ALT (GPT) 51 U/L (12-78); TOTAL BILIRUBIN ADULT 0.4 MG/DL (0.2-1.0); TOTAL PROTEIN 8.5 GM/DL (6.4-8.2); TROPONIN I LESS THAN 0.02 NG/ML (0.02-0.05)
[2017-07-09 10:52] LABS: PROTHROMBIN TIME - PATIENT 10.3 SEC (9.8-11.6)
[2017-07-09 10:54] LABS: D-DIMER 0.24 MG/L FEU (0.00-0.50)
--- NOTE | 2017-07-10 21:46 | EKG ---
Date Performed: 07/09/2017 Time Performed: 09:31:23 PTAGE: 56 years EKG: Sinus rhythm WITH FIRST DEGREE AV BLOCK PATTERN CONSISTENT WITH PULMONARY DISEASE LEFT ANTERIOR FASCICULAR BLOCK ABNORMAL ECG INTERPRETATION BASED ON A DEFAULT AGE OF 41 YEARS NO PREVIOUS TRACING DOCTOR: Bradford Granadso Interpretating Date/Time 07/10/2017 21:45:07
== END 2017-07-09 12:18 | disposition home or self-care (01) ==
LOC: NEPE 09:06
DX: I44.0 Atrioventricular block, first degree (principal); I44.4 Left anterior fascicular block; R94.31 Abnormal electrocardiogram [ECG] [EKG]; R51 Headache; I10 Essential (primary) hypertension; E78.00 Pure hypercholesterolemia, unspecified; F32.9 Major depressive disorder, single episode, unspecified; F12.90 Cannabis use, unspecified, uncomplicated; Z86.19 Personal history of other infectious and parasitic diseases
CPT/HCPCS: 70450; 71045; 80053; 82550; 82552; 83690; 83880; 84484; 85025; 85379; 85610; 85730; 93005; 96374; 99285; J0360